=== PATIENT | female | born 1950 | race Hispanic/Latino ===

== ENCOUNTER 2018-10-24 10:43 | Emergency (ER) | payer MEDICARE ==
[2018-10-24 10:43] VITALS: BMI 24.9
[2018-10-24 10:50] VITALS: TEMP 98
[2018-10-24 11:44] LABS: HEMOGLOBIN 12.4 g/dL (12.0-16.0); MEAN CELL VOLUME 94.7 fl (80.0-105.0); RBC 4.13 10^6/uL (3.5-6.1); WHITE BLOOD COUNT 5.8 10^3/uL (4.5-11.0)
[2018-10-24 11:45] LABS: BASO # 0.03 K/mm3 (0.0-2.0); BASO % 0.5 % (0.0-3.0); EOS # 0.3 (0.0-0.7); EOS % 5.4 % (1.5-5.0); GRAN # 3.71 (1.4-6.5); GRAN % 64.4 % (50.0-68.0); LYMPH # 1.2 (1.2-3.4); LYMPH % 20.8 % (22.0-35.0); MEAN CORPUSCULAR HGB CONC 31.7 g/dl (31.0-37.0); MEAN PLATELET VOLUME 11.2 fl (7.0-11.0); MONO # 0.5 (0.1-0.6); MONO % 8.9 % (1.0-6.0); RED CELL DISTRIBUTION WIDTH 13.3 % (11.5-14.5)
[2018-10-24 11:48] LABS: PH,URINE 6.5 (4.7-8.0); URINE BILIRUBIN NEGATIVE (NEGATIVE); URINE BLOOD TRACE-INTACT (NEGATIVE); URINE GLUCOSE (UA) NEGATIVE (NEGATIVE); URINE LEUKOCYTE ESTERASE NEGATIVE Leu/uL (NEGATIVE); URINE PROTEIN NEGATIVE mg/dL (<30 mg/dL); URINE UROBILINOGEN 0.2 E.U./dL (<1 E.U./dL)
[2018-10-24 11:50] LABS: URINE APPEARANCE CLEAR (CLEAR); URINE COLOR YELLOW (YELLOW)
[2018-10-24 12:00] LABS: ALB/GLOB RATIO 1.4 (1.1-1.8); ALBUMIN 4.6 g/dL (3.0-4.8); ALT/SGPT 25 U/L (7-56); AMYLASE 80 U/L (35-125); AST/SGOT 30 U/L (14-36); BLOOD UREA NITROGEN 16 mg/dL (7-21); CALCIUM 9.9 mg/dL (8.4-10.5); GFR NON-AFRICAN AMERICAN > 60; LIPASE 77 U/L (23-300)
[2018-10-24 12:03] LABS: URINE BACTERIA FEW (NEG); URINE RBC 0 - 2 /hpf (0-2); URINE WBC 0 - 2 /hpf (0-6)
[2018-10-24 12:11] LABS: TROPONIN I < 0.01 ng/mL
[2018-10-24 12:23] VITALS: PULSE 81
--- NOTE | 2018-10-24 13:06 | ED PDOC ---
Arrival/HPI - General Historian: Patient - History of Present Illness Narrative History of Present Illness (Text): 10/24/18 13:06 68yo female with pmhx of hypertension, hypercholestrolemia, vertigo who present with complaint of elevated BP and palpitation since last night. Patient states her BP was elevated yesterday and with associated palpation which improved with Xanax. States she had similar symptom when she woke up this morning. Notes that she took her medication again. she denies chest pain, SOB, diaphoresis, focal weakness, slurred speech, visual changes, nausea, vomiting, abdominal pain, any other complaint. <Candy Davis A - Last Filed: 10/24/18 18:21> <Edgar Foote - Last Filed: 10/24/18 19:04> - General Chief Complaint: Palpitations Past Medical History - Provider Review Nursing Documentation Reviewed: Yes - Infectious Disease Hx of Infectious Diseases: None - Cardiac Hx Hypertension: Yes Hx Pacemaker: No - Neurological Hx Paralysis: No - Hematological/Oncological Hx Blood Transfusions: No Hx Blood Transfusion Reaction: No - Musculoskeletal/Rheumatological Hx Musculoskeletal Disorders: No - Psychiatric Hx Emotional Abuse: No Hx Physical Abuse: No Hx Substance Use: No - Anesthesia Hx Anesthesia Reactions: No (NOT SURE IF EVER HAD GENERAL ANESTHESIA) Hx Malignant Hyperthermia: No - Suicidal Assessment Feels Threatened In Home Enviroment: No <Candy Davis A - Last Filed: 10/24/18 18:21> Family/Social History - Physician Review Nursing Documentation Reviewed: Yes Family/Social History: Unknown Family HX Smoking Status: Never Smoked Hx Alcohol Use: Yes (SOCIAL USE ONLY) Hx Substance Use: No <RyanHappiness A - Last Filed: 10/24/18 18:21> Allergies/Home Meds <RyanHappiness A - Last Filed: 10/24/18 18:21> <Edgar Foote - Last Filed: 10/24/18 19:04> Allergies/Adverse Reactions: Allergies shellfish Allergy (Uncoded 08/26/16 09:26) URTICARIA Home Medications: Home Meds Medication Instructions Recorded Confirmed Lisinopril [Zestril] 10 mg PO DAILY 08/26/16 10/24/18 RX: Meclizine [Meclizine*] 25 mg PO DAILY PRN 08/26/16 10/24/18 Ubidecarenone [Co Q-10] 1 cap PO DAILY 08/26/16 10/24/18 Fluticasone Nasal [Flonase] 1 spray NS QPM 12/17/16 10/24/18 Multivit-Min/FA/Lycopen/Lutein 1 each PO DAILY 10/24/18 10/24/18 [Centrum Silver Tablet] RX: Alprazolam [Xanax] 1 tab PO PRN PRN 10/24/18 10/24/18 RX: Metoprolol Succinate XL 50 mg PO DAILY 10/24/18 10/24/18 [Toprol XL] Ranitidine HCl [Zantac] 1 tab PO QOTHERDAY 10/24/18 10/24/18 Review of Systems - Physician Review All systems were reviewed & negative as marked: Yes - Review of Systems Constitutional: Normal, Other (Elevated BP) Eyes: Normal ENT: Normal Respiratory: Normal Cardiovascular: Normal Gastrointestinal: Normal Genitourinary Female: Normal Musculoskeletal: Normal Skin: Normal Neurological: Normal Endocrine: Normal Hemo/Lymphatic: Normal Psychiatric: Normal <Diru,Happiness A - Last Filed: 10/24/18 18:21> Physical Exam Vital Signs Reviewed: Yes Vital Signs Temp Pulse Pulse Resp BP BP Pulse Ox 10/24/18 11:20 81 153/76 H 10/24/18 10:49 98.0 F 106 H 20 180/100 H 100 Temperature: Afebrile Blood Pressure: Hypertensive Pulse: Tachycardic Respiratory Rate: Normal Appearance: Positive for: Well-Appearing, Non-Toxic, Comfortable Pain Distress: None Mental Status: Positive for: Alert and Oriented X 3 - Systems Exam Head: Present: Atraumatic, Normocephalic Pupils: Present: PERRL Extroacular Muscles: Present: EOMI Conjunctiva: Present: Normal Mouth: Present: Moist Mucous Membranes Neck: Present: Normal Range of Motion Respiratory/Chest: Present: Clear to Auscultation, Good Air Exchange. No: Respiratory Distress, Accessory Muscle Use Cardiovascular: Present: Regular Rate and Rhythm, Normal S1, S2. No: Murmurs Abdomen: No: Tenderness, Distention, Peritoneal Signs Back: Present: Normal Inspection Upper Extremity: Present: Normal Inspection. No: Cyanosis, Edema Lower Extremity: Present: Normal Inspection. No: Edema Neurological: Present: GCS=15, CN II-XII Intact, Speech Normal Skin: Present: Warm, Dry, Normal Color. No: Rashes Psychiatric: Present: Alert, Oriented x 3, Normal Insight, Normal Concentration <Diru,Happiness A - Last Filed: 10/24/18 18:21> Vital Signs Temp Pulse Pulse Resp BP BP Pulse Ox 10/24/18 13:17 81 16 148/74 98 10/24/18 11:20 81 153/76 H 10/24/18 10:49 98.0 F 106 H 20 180/100 H 100 <TolericoEdgar - Last Filed: 10/24/18 19:04> Medical Decision Making ED Course and Treatment: 10/24/18 13:05 68yo female who present with complaint of elevated BP since last night. Lab EKG UA 10/24/18 18:24 On re evaluation pt's BP/VS improved. She was not in any distress. EKG Sinus tachy with PSV @ 101bpm Lab was unremarkable Case was DW Dr. Marc, pt's PMD and he recommends DC and f/u with his office on Friday. Pt is stable in ED for DC. All result and plan was DW the pt and she verbalized understanding of the instructions. - Lab Interpretations Lab Results: 10/24/18 11:30 10/24/18 11:30 Lab Results 10/24/18 11:37: Urine Color Yellow, Urine Appearance Clear, Urine pH 6.5, Ur Specific Hickman 1.010, Urine Protein Negative, Urine Glucose (UA) Negative, Urine Ketones Negative, Urine Blood Trace-intact H, Urine Nitrate Negative, Urine Bilirubin Negative, Urine Urobilinogen 0.2, Ur Leukocyte Esterase N egative, Urine RBC 0 - 2, Urine WBC 0 - 2, Ur Epithelial Cells 1 - 3, Urine Bacteria Few 10/24/18 11:30: Sodium 138, Potassium 4.8, Chloride 100, Carbon Dioxide 29, Anion Gap 14, BUN 16, Creatinine 0.8, Est GFR ( Amer) > 60, Est GFR (Non- Af Amer) > 60, Random Glucose 104, Calcium 9.9, Total Bilirubin 0.6, AST 30, ALT 25, Alkaline Phosphatase 88, Lactate Dehydrogenase 397, Total Creatine Kinase 77, Troponin I < 0.01, Total Protein 7.8, Albumin 4.6, Globulin 3.2, Al bumin/Globulin Ratio 1.4, Amylase 80, Lipase 77 10/24/18 11:30: WBC 5.8, RBC 4.13, Hgb 12.4, Hct 39.1, MCV 94.7, MCH 30.0, MCHC 31.7, RDW 13.3, Plt Count 270, MPV 11.2 H, Gran % 64.4, Lymph % (Auto) 20.8 L, Wells % (Auto) 8.9 H, Eos % (Auto) 5.4 H, Baso % (Auto) 0.5, Gran # 3.71, Lymph # (Auto) 1.2, Wells # (Auto) 0.5, Eos # (Auto) 0.3, Baso # (Auto) 0.03 <Candy Davis - Last Filed: 10/24/18 18:21> - Lab Interpretations Lab Results: 10/24/18 11:30 10/24/18 11:30 Lab Results 10/24/18 11:37: Urine Color Yellow, Urine Appearance Clear, Urine pH 6.5, Ur Specific Hickman 1.010, Urine Protein Negative, Urine Glucose (UA) Negative, Urine Ketones Negative, Urine Blood Trace-intact H, Urine Nitrate Negative, Urine Bilirubin Negative, Urine Urobilinogen 0.2, Ur Leukocyte Esterase Negativ e, Urine RBC 0 - 2, Urine WBC 0 - 2, Ur Epithelial Cells 1 - 3, Urine Bacteria Few 10/24/18 11:30: Sodium 138, Potassium 4.8, Chloride 100, Carbon Dioxide 29, Anion Gap 14, BUN 16, Creatinine 0.8, Est GFR ( Amer) > 60, Est GFR (Non- Af Amer) > 60, Random Glucose 104, Calcium 9.9, Total Bilirubin 0.6, AST 30, ALT 25, Alkaline Phosphatase 88, Lactate Dehydrogenase 397, Total Creatine Kinase 77, Troponin I < 0.01, Total Protein 7.8, Albumin 4.6, Globulin 3.2, Albumin/ Globulin Ratio 1.4, Amylase 80, Lipase 77 10/24/18 11:30: PT 11.0, INR 0.96, APTT 25.2 10/24/18 11:30: WBC 5.8, RBC 4.13, Hgb 12.4, Hct 39.1, MCV 94.7, MCH 30.0, MCHC 31.7, RDW 13.3, Plt Count 270, MPV 11.2 H, Gran % 64.4, Lymph % (Auto) 20.8 L, Wells % (Auto) 8.9 H, Eos % (Auto) 5.4 H, Baso % (Auto) 0.5, Gran # 3.71, Lymph # (Auto) 1.2, Wells # (Auto) 0.5, Eos # (Auto) 0.3, Baso # (Auto) 0.03 <Edgar Foote - Last Filed: 10/24/18 19:04> - PA / STORE SH[employer]PER / Resident Statement MD/DO has reviewed & agrees with the documentation as recorded. <Edgar Foote - Last Filed: 10/24/18 19:04> Disposition/Present on Arrival - Present on Arrival Any Indicators Present on Arrival: No History of DVT/PE: No History of Uncontrolled Diabetes: No Urinary Catheter: No History of Decub. Ulcer: No History Surgical Site Infection Following: None - Disposition Have Diagnosis and Disposition been Completed?: Yes Disposition Time: 13:05 Patient Plan: Discharge <Candy Davis - Last Filed: 10/24/18 18:21> <Edgar Foote - Last Filed: 10/24/18 19:04> - Disposition Diagnosis: Hypertension Disposition: HOME/ ROUTINE Condition: STABLE Discharge Instructions (ExitCare): High Blood Pressure in Adults Additional Instructions: Follow up with Dr. Marc on Friday Return to ED for worsening symptoms Referrals: Jas Marc MD [Family Provider] - Follow up with primary Forms: [employer] (Yi)
[2018-10-24 13:17] VITALS: BP 148/74; RESP 16; O2SAT 98
[2018-10-24 13:19] LABS: INR 0.96; PARTIAL THROMBOPLASTIN TIME 25.2 Seconds (25.1-36.5)
--- NOTE | 2018-10-24 18:26 | CARD ---
APPROVED REPORT Date of service: 10/24/2018 EKG Measurement Heart [id number] <Conclusion> Sinus tachycardia with premature supraventricular complexes Possible Left atrial enlargement Borderline ECG
== END 2018-10-24 13:33 | disposition home or self-care (01) ==
LOC: ED 10:43
DX: I10 Essential (primary) hypertension (principal)